=== PATIENT | male | born 1970 | race Caucasian/White ===

== ENCOUNTER 2024-08-20 19:41 | Inpatient (IN) | payer MEDICARE ==
[~2024-08-20] VITALS: Ht 182.9 cm; Wt 108.9 kg
[2024-08-20 21:21] LABS: BASOPHILS ABSOLUTE AUTO 0.07 K/mm3 (0.00-0.23); BASOPHILS PERCENT AUTO 1 % (0-2); EOSINOPHILS ABSOLUTE AUTO 0.14 K/mm3 (0.00-0.68); EOSINOPHILS PERCENT AUTO 1 % (0-6); Hematocrit 41.7 % (37.0-53.0); Hemoglobin 12.9 g/dL (13.5-17.5); IMMATURE GRAN ABSOLUTE AUTO 0.07 K/mm3 (0.00-0.10); IMMATURE GRAN PERCENT AUTO 1 % (0-1); LYMPHOCYTES ABSOLUTE AUTO 1.47 K/mm3 (0.84-5.20); LYMPHOCYTES PERCENT AUTO 10 % (21-46); MONOCYTES ABSOLUTE AUTO 1.02 K/mm3 (0.16-1.47); MONOCYTES PERCENT AUTO 7 % (4-13); Mean Corpuscular HGB 24.2 pg (26.0-34.0); Mean Corpuscular HGB Conc 30.9 g/dL (31.5-36.5); Mean Corpuscular Volume 78 fL (80-100); NEUTROPHILS PERCENT AUTO 81 % (41-73); Platelet Count 235 K/mm3 (150-400); RDW Coefficient Variation 19.2 % (11.7-14.2); Red Blood Cell Count 5.34 M/mm3 (4.30-5.90); White Blood Cell Count 14.87 K/mm3 (4.00-11.30)
[2024-08-20] MEDS ORDERED: NS 1,000 ML IV SCH (21:35)
[2024-08-20 21:39] LABS: Albumin, Blood 2.6 g/dL (3.4-5.0); Albumin/Globulin Ratio 0.5 (0.8-1.8); Bilirubin, Total 0.6 mg/dL (0.1-1.0); Bun/Creatinine Ratio 15.7 (12.0-20.0); Calcium, Blood 9.1 mg/dL (8.5-10.1); Creatinine, Blood 0.7 mg/dL (0.60-1.20); Globulin, Blood 4.9 g/dL (2.2-4.0); Potassium, Blood 5.9 mmol/L (3.5-5.5); Total Protein, Blood 7.5 g/dL (6.4-8.2)
[2024-08-20 21:48] LABS: CORONAVIRUS COVID-19 AG Negative (NEGATIVE); INFLUENZA A AG Negative (NEGATIVE); INFLUENZA B AG Negative (NEGATIVE)
[2024-08-20] MEDS ORDERED: Insulin Regular 100 Unit/ML 1ML Dose IV ONE (21:50)
[2024-08-20] MEDS ORDERED: Calcium Chloride 10% 100 MG/ML 10ML Vial IV SCH (21:50)
[2024-08-20 21:57] LABS: Magnesium, Blood 1.9 mg/dL (1.6-2.4)
[2024-08-20] MEDS ORDERED: CALCIUM GLUC IN NACL, ISO-OSM 50 ML IV ONE (22:00)
[2024-08-20 22:06] LABS: Calcium, Ionized (POC) 1.12 mmol/L (1.10-1.46); Chloride (POC) 99 mmol/L (98-108); Creatinine (POC) 0.8 mg/dL (0.8-1.3); Glucose (ISTAT POC) 558 mg/dL (70-99); Hemoglobin (POC) 14.6 g/dL (13.5-17.5); Potassium (POC) 5.9 mmol/L (3.5-5.5); Sodium (POC) 129 mmol/L (135-148); Total CO2 (POC) 24 mmol/L (21-32)
[2024-08-20 23:14] LABS: Source, Urine Clean Catch
[2024-08-20 23:30] LABS: Appearance, Urine Hazy (Clear); Bilirubin, Urine Neg (Neg); Blood, Urine 1+ (Neg); Color, Urine Yellow (P-Yellow); Glucose Qualitative, Urine 4+ (Neg); Ketones, Urine Neg (Neg); Leukocyte Esterase, Urine 1+ (Neg); Nitrite, Urine Pos (Neg); Protein, Urine 2+ (Neg); Specific Gravity, Urine 1.015 (1.003-1.022); Urobilinogen, Urine NORM (Normal)
[2024-08-20 23:45] LABS: Bacteria Mod /hpf; Red Blood Cells, Urine 0-2 /hpf (0-2); Squamous Epithelial Cells Few /hpf (Few); White Blood Cells, Urine TNTC /hpf (0-5)
[2024-08-21 00:03] LABS: Calcium, Ionized (POC) 1.11 mmol/L (1.10-1.46); Chloride (POC) 100 mmol/L (98-108); Creatinine (POC) 0.7 mg/dL (0.8-1.3); Glucose (ISTAT POC) 329 mg/dL (70-99); Hemoglobin (POC) 13.3 g/dL (13.5-17.5); Potassium (POC) 4.8 mmol/L (3.5-5.5); Sodium (POC) 133 mmol/L (135-148); Total CO2 (POC) 24 mmol/L (21-32)
[2024-08-21] MEDS ORDERED: NS 1,000 ML IV ONE (00:15)
[2024-08-21] MEDS ORDERED: Ondansetron HCl 2 MG / ML 2ML Vial IV PRN (00:20)
[2024-08-21] MEDS ORDERED: Acetaminophen 325 MG TABLET PO PRN (00:20)
[2024-08-21] MEDS ORDERED: CefTRIAXone Sodium 2,000 MG in NS 100 ML IV ONE (00:25)
[2024-08-21] MEDS ORDERED: NS 1,000 ML IV SCH (00:25)
[2024-08-21] MEDS ORDERED: Insulin Glargine-Yfgn 100 Unit/mL 3 ML SYR SC SCH (01:00)
[2024-08-21 02:12] VITALS: BP 142/73
[2024-08-21] MEDS ORDERED: Magnesium Hydroxide Conc 10 ML UDC PO PRN (03:35)
[2024-08-21 05:35] LABS: BASOPHILS ABSOLUTE AUTO 0.07 K/mm3 (0.00-0.23); BASOPHILS PERCENT AUTO 1 % (0-2); EOSINOPHILS ABSOLUTE AUTO 0.21 K/mm3 (0.00-0.68); EOSINOPHILS PERCENT AUTO 2 % (0-6); Hematocrit 37.4 % (37.0-53.0); Hemoglobin 11.5 g/dL (13.5-17.5); IMMATURE GRAN ABSOLUTE AUTO 0.07 K/mm3 (0.00-0.10); IMMATURE GRAN PERCENT AUTO 1 % (0-1); LYMPHOCYTES ABSOLUTE AUTO 1.18 K/mm3 (0.84-5.20); LYMPHOCYTES PERCENT AUTO 9 % (21-46); MONOCYTES ABSOLUTE AUTO 1.11 K/mm3 (0.16-1.47); MONOCYTES PERCENT AUTO 8 % (4-13); Mean Corpuscular HGB 24.6 pg (26.0-34.0); Mean Corpuscular HGB Conc 30.7 g/dL (31.5-36.5); Mean Corpuscular Volume 80 fL (80-100); NEUTROPHILS ABSOLUTE AUTO 10.73 K/mm3 (1.96-9.15); NEUTROPHILS PERCENT AUTO 80 % (41-73); Platelet Count 208 K/mm3 (150-400); RDW Coefficient Variation 19.2 % (11.7-14.2); RDW Standard Deviation 54.5 fL (35.1-46.3); Red Blood Cell Count 4.68 M/mm3 (4.30-5.90); White Blood Cell Count 13.37 K/mm3 (4.00-11.30)
[2024-08-21 06:07] LABS: Albumin, Blood 2.2 g/dL (3.4-5.0); Albumin/Globulin Ratio 0.5 (0.8-1.8); Bilirubin, Total 0.5 mg/dL (0.1-1.0); Bun/Creatinine Ratio 17.3 (12.0-20.0); Calcium, Blood 8.6 mg/dL (8.5-10.1); Creatinine, Blood 0.58 mg/dL (0.60-1.20); Globulin, Blood 4.1 g/dL (2.2-4.0); Potassium, Blood 4.9 mmol/L (3.5-5.5); Total Protein, Blood 6.3 g/dL (6.4-8.2)
[2024-08-21] MEDS ORDERED: FentaNYL Citrate 50 MCG/ML 2 ML Injection IV PRN (06:10)
[2024-08-21] MEDS ORDERED: Insulin Human Lispro 100 Units/ML 3ML Syringe SC SCH ×2 (07:30→16:30)
[2024-08-21 08:01] VITALS: BP 147/68
[2024-08-21] MEDS ORDERED: Sennosides 8.6 MG Tab PO SCH (09:00)
[2024-08-21] MEDS ORDERED: Enoxaparin 40 MG/0.4 ML SYR SC SCH (09:00)
[2024-08-21 11:46] VITALS: BP 140/76
[2024-08-21] MEDS ORDERED: Insulin Human Lispro 100 Units/ML 3ML Syringe SC ONE (12:00)
[2024-08-21 15:56] VITALS: BP 122/59
--- NOTE | 2024-08-21 18:27 | NUR ---
SUMMARY- PT CONFUSED AND A/O X2-3, POOR HISTORIAN. TOLERATING FOOD AND FLUIDS. COMPLAINS OF PAIN OCC PENILE WOUND AND CHRONIC BACK PAIN, IF FENT ADMIN ONCE THIS SHIFT WITH RELEIF. PT ON BEDREST FOR NOW HE HAS HX L BKA. INCONT B/B, STATES URGENCY THE REASON. VSS, AFIBRILE. LANDCARE OFFICER CONTACTED FRIEND WHO LIVES LOCALLY TO FIND OUT THE WHOLE STORY OF THIS PT- SHE BROUGHT MED LIST AND SPOKE WITH ТАТЬЯНА Jamison. SHE STATES SHE NEVER MET HIM IN PERSON ONLY ON THE INTERNET 15 YEARS AGO, THEY HAVE BEEN FRIENDS VIA SOCIAL MEDIA. THE PT LIVED OUT OF STATE AND SURPRISED THIS LADY, STATING HE WANTS TO BE CLOSE TO HER NOW. SHE ALSO STATES PT HAS TERMINAL LUNG CANCER DX. WILL PASS ON THE INFO AND REPORT TO NOC MEY
[2024-08-21 19:38] VITALS: BP 120/75
[2024-08-21] MEDS ORDERED: CefTRIAXone Sodium 1,000 MG in NS 100 ML IV SCH (21:00)
[2024-08-21 23:43] VITALS: BP 92/63
--- NOTE | 2024-08-22 00:58 | NUR ---
LAB REPORTS BLOOD CULTURE: GRAM NEGATIVE BACILLI. PATIENT ON IV CEFTRIAXONE 1,[address] PLASENCIA REPORTS COVERAGE IS SUFFICIENT. TM.
[2024-08-22 03:30] VITALS: BP 110/69
--- NOTE | 2024-08-22 04:04 | NUR ---
SHIFT SUMMARY PATIENT HAD NO ACUTE CHANGES. AXO X 2 AND BEDREST WITH LEFT BKA. PIV INTACT. IV ABX INFUSED. CBG 269. TELE MONITOR NSR 98. INCONTINENT. DR MCDANIELS IN TO SEE PATIENT. ORDERS PLACED. DENIES CHEST PAIN, SOB, AND N/V. VSS/AFEBRILE. CALL LIGHT IN REACH. BED IN LOWEST POSITION. WILL CONTINUE TO MONITOR UNTIL DAY SHIFT NURSE ASSUMES CARE.
--- NOTE | 2024-08-22 04:06 | NUR ---
RUBBER EXTRUSION MACHINE OPERATOR REPORTS IDIOVENTRICULAR RHYTHM FOR 30 SECONDS AND BACK TO NSR 98. PATIENT ASYMPTOMATIC RESTING IN BED. TM.
[2024-08-22 05:56] LABS: BASOPHILS ABSOLUTE AUTO 0.06 K/mm3 (0.00-0.23); BASOPHILS PERCENT AUTO 1 % (0-2); EOSINOPHILS ABSOLUTE AUTO 0.19 K/mm3 (0.00-0.68); EOSINOPHILS PERCENT AUTO 2 % (0-6); Hematocrit 39.4 % (37.0-53.0); IMMATURE GRAN ABSOLUTE AUTO 0.07 K/mm3 (0.00-0.10); IMMATURE GRAN PERCENT AUTO 1 % (0-1); LYMPHOCYTES ABSOLUTE AUTO 1.19 K/mm3 (0.84-5.20); LYMPHOCYTES PERCENT AUTO 10 % (21-46); MONOCYTES ABSOLUTE AUTO 0.95 K/mm3 (0.16-1.47); MONOCYTES PERCENT AUTO 8 % (4-13); Mean Corpuscular HGB Conc 30.5 g/dL (31.5-36.5); Mean Corpuscular Volume 79 fL (80-100); NEUTROPHILS ABSOLUTE AUTO 9.06 K/mm3 (1.96-9.15); NEUTROPHILS PERCENT AUTO 79 % (41-73); Platelet Count 209 K/mm3 (150-400); RDW Coefficient Variation 19.2 % (11.7-14.2); RDW Standard Deviation 54.4 fL (35.1-46.3); White Blood Cell Count 11.52 K/mm3 (4.00-11.30)
[2024-08-22 06:26] LABS: Albumin, Blood 2.3 g/dL (3.4-5.0); Anion Gap 12 mmol/L (3-11); Blood Urea Nitrogen 12 mg/dL (8-24); Bun/Creatinine Ratio 19.1 (12.0-20.0); CO2, Blood 22 mmol/L (21-32); Calcium, Blood 8.4 mg/dL (8.5-10.1); Chloride, Blood 101 mmol/L (98-108); Creatinine, Blood 0.63 mg/dL (0.60-1.20); Glomerular Filtration Rate 113 (60-); Glucose, Blood 301 mg/dL (70-99); Magnesium, Blood 1.9 mg/dL (1.6-2.4); Potassium, Blood 4.4 mmol/L (3.5-5.5); Sodium, Blood 131 mmol/L (136-145); Thyroid Stimulating Hormone 0.667 uIU/mL (0.360-4.800)
[2024-08-22 07:17] VITALS: BP 129/69
[2024-08-22 08:06] LABS: Osmolality, Serum 299 mos/KG (275-300)
--- NOTE | 2024-08-22 08:30 | NUR ---
MD CALL CALL AND SPOKE WITH DR MCDANIELS CONCERNING 24 HOUR URING COLLECTION. INORMED PROVIDER THAT CLIENT IS CURRENTLY INCONTINENT. HERNESTO STATED HE DID NOT WANT TO CATHERIZE PATIENT...JUST COLLECT MUCH POSSIBLE
[2024-08-22] MEDS ORDERED: Tamsulosin HCl 0.4 MG Cap PO SCH (09:00)
[2024-08-22] MEDS ORDERED: Nicotine 21 MG PATCH TOP SCH (10:50)
[2024-08-22] MEDS ORDERED: NS 250 ML IV PRN (12:20)
[2024-08-22 15:17] VITALS: BP 117/71
--- NOTE | 2024-08-22 15:27 | NUR ---
RN NOTE NO RECORDS RECIEVED YET FROM [facility]. MEDICAL RECORDS CALLED AGAIN AND VOICE MESSAGE LEFT.
--- NOTE | 2024-08-22 18:34 | NUR ---
SHIFT SUMMARY A&OX2. SALINE LOCK TO LEFT WRIST REMAIN PATENT. C/O OF PENILE PAIN. GIVEN SUBLIMAZE IV WITH GOOD RESULTS. TELE DC'D. TRANSFERRED TO CHAIR INDEPENTENTLY, WITH NURSE STANDBY. 24 HOUR URINE COLLECTION STARTED. REQUESTED MEDICAL RECORS FROM [facility] IN [place], [place]. HAVE NOT RECIEVED RECORDS AT THIS TIME. BED IN LOW POSITION AND CALL LIGHT IN REACH
[2024-08-22 19:13] VITALS: BP 117/78
[2024-08-23 03:45] VITALS: BP 133/66
--- NOTE | 2024-08-23 05:54 | NUR ---
SHIFT SUMMARY NOC PT A/O X 3. PLEASANT AND COOPERATIVE WITH CARE. VSS. HS CBG 343 AND 4 UNITS LISPRO GIVEN PER SLIDING SCALE. DR MCDANIELS DURING AM ROUNDING CHANGED GLARGINE TO 35 UNITS DAILY. PT PENIS/BACK PAIN MANAGED PER EMAR. WOUND ON MEATUS PERFORMED PER ORDERS. 24 HR URINE COLLECTION ENDS @ 0920 TODAY. IV ABX PER EMAR. PT CURRENTLY RESTING WITH BED IN LOWEST POSITION, AND CALL LIGHT WITHIN REACH.
[2024-08-23 06:12] LABS: BASOPHILS ABSOLUTE AUTO 0.07 K/mm3 (0.00-0.23); BASOPHILS PERCENT AUTO 1 % (0-2); EOSINOPHILS ABSOLUTE AUTO 0.16 K/mm3 (0.00-0.68); EOSINOPHILS PERCENT AUTO 2 % (0-6); Hematocrit 40.2 % (37.0-53.0); Hemoglobin 12.4 g/dL (13.5-17.5); IMMATURE GRAN ABSOLUTE AUTO 0.07 K/mm3 (0.00-0.10); IMMATURE GRAN PERCENT AUTO 1 % (0-1); LYMPHOCYTES ABSOLUTE AUTO 0.75 K/mm3 (0.84-5.20); LYMPHOCYTES PERCENT AUTO 8 % (21-46); MONOCYTES ABSOLUTE AUTO 0.96 K/mm3 (0.16-1.47); MONOCYTES PERCENT AUTO 10 % (4-13); Mean Corpuscular HGB 24.3 pg (26.0-34.0); Mean Corpuscular HGB Conc 30.8 g/dL (31.5-36.5); Mean Corpuscular Volume 79 fL (80-100); NEUTROPHILS PERCENT AUTO 79 % (41-73); Platelet Count 190 K/mm3 (150-400); RDW Coefficient Variation 19.2 % (11.7-14.2); Red Blood Cell Count 5.11 M/mm3 (4.30-5.90); White Blood Cell Count 9.51 K/mm3 (4.00-11.30)
[2024-08-23 06:32] LABS: Albumin, Blood 2.2 g/dL (3.4-5.0); Anion Gap 12 mmol/L (3-11); Blood Urea Nitrogen 12 mg/dL (8-24); Bun/Creatinine Ratio 21.5 (12.0-20.0); CO2, Blood 23 mmol/L (21-32); Calcium, Blood 8.5 mg/dL (8.5-10.1); Chloride, Blood 101 mmol/L (98-108); Creatinine, Blood 0.56 mg/dL (0.60-1.20); Glomerular Filtration Rate 117 (60-); Glucose, Blood 338 mg/dL (70-99); Phosphorus, Blood 3.4 mg/dL (2.5-4.9); Potassium, Blood 4.2 mmol/L (3.5-5.5); Sodium, Blood 132 mmol/L (136-145)
[2024-08-23 07:05] VITALS: BP 137/79
[2024-08-23] MEDS ORDERED: Insulin Glargine-Yfgn 100 Unit/mL 3 ML SYR SC SCH ×4 (09:00→21:00)
[2024-08-23 11:02] LABS: Protein, Urine Quantitative 87.3 mg/dL (0.0-11.9)
[2024-08-23 15:39] VITALS: BP 124/78
--- NOTE | 2024-08-23 19:42 | NUR ---
SHIFT SUMMARY PT A&OX4. PT PLEASANT AND COORERATIVE WITH CARE. VSS. PT ADMITTED DUE TO SEPSIS. PT REPORTS PAIN ON BACK AND MEATUS. PT MEDICATED PER EMAR. 24 HOUR URINE COLLECTED AND SENT TO LAB THIS AM. PT ACHS. BLOOD SUGARS. PT BLOOD SUGARS ELEVATED THIS AM. DOC NOTIFIED. DR. BOWLES ADDED ADDITIONAL GLARGINE DOSE AT BEDTIME. ANTIBIOTIC OINTMENT NOT IN EMAR, PER WOUND CARE ORDERS. CALLED DR. BOWLES, WILBUR STATED "D/C DUE TO PT RECEIVING IV ANTIBIOTICS." PT STATES USES WHEELCHAIR AT BASE. PT INC/CONT. ABLE TO MAKE NEEDS KNOWN, PT IN BED, BED AT LOWEST POSITION, CALL LIGHT IN REACH.
[2024-08-23 20:15] VITALS: BP 132/61
[2024-08-24 05:23] LABS: Hematocrit 38.9 % (37.0-53.0); Hemoglobin 12.2 g/dL (13.5-17.5)
[2024-08-24 05:41] VITALS: BP 145/92
[2024-08-24 05:47] LABS: Albumin, Blood 2.3 g/dL (3.4-5.0); Anion Gap 14 mmol/L (3-11); Blood Urea Nitrogen 12 mg/dL (8-24); Bun/Creatinine Ratio 20.3 (12.0-20.0); CO2, Blood 21 mmol/L (21-32); Calcium, Blood 8.7 mg/dL (8.5-10.1); Chloride, Blood 102 mmol/L (98-108); Creatinine, Blood 0.59 mg/dL (0.60-1.20); Glomerular Filtration Rate 115 (60-); Glucose, Blood 294 mg/dL (70-99); Magnesium, Blood 1.9 mg/dL (1.6-2.4); Phosphorus, Blood 3.2 mg/dL (2.5-4.9); Potassium, Blood 3.9 mmol/L (3.5-5.5); Sodium, Blood 133 mmol/L (136-145)
[2024-08-24 07:35] VITALS: BP 169/103
[2024-08-24] MEDS ORDERED: HYDROcodone 5-APAP 325 TAB PO PRN (08:05)
[2024-08-24] MEDS ORDERED: Ketorolac Tromethamine 15mg Vial IV PRN (08:30)
--- NOTE | 2024-08-24 08:38 | NUR ---
NOTE DR. MCDANIELS CAME TO ROUND ON PT, GAVE VERBAL ORDER TO DO 37 OF LONG ACTING IN MORNING (INSULIN) AND 13 AT NIGHT, STILL SAME TOTAL DAILY DOSE. INSULIN GIVEN.
[2024-08-24] MEDS ORDERED: Insulin Glargine-Yfgn 100 Unit/mL 3 ML SYR SC SCH ×2 (09:00→21:00)
[2024-08-24] MEDS ORDERED: Ciprofloxacin 400MG/D5 200ML 200 ML IV SCH (09:00)
[2024-08-24] MEDS ORDERED: Losartan Potassium 25 MG Tab PO SCH (09:00)
--- NOTE | 2024-08-24 14:19 | NUR ---
NOTE CALLED [facility]. SPOKE WITH STAFF MEMBER, ASKED IF WE COULD HAVE PT'S MEDICAL HISTORY. STAFF MEMBER STATES "KNOWS PT, UNABLE TO PROVIDE INFO, CALL TOMORROW AM, PHONE NUMBER TO CALL IS [phone]. OG WILL NEED TO HAVE MEDICAL RELEASE FORM TO SEND TO RETRIEVE INFO. PT DISCHARGED 4-24-[address] BOWLES NOTIFIED. MRI NOTIFIED. MRI FAX FORM IN CHART. WILL PASS ON TO NIGHT NURSE.
[2024-08-24 16:30] VITALS: BP 125/69
--- NOTE | 2024-08-24 17:24 | NUR ---
NOTE MRI STATED "UNABLE TO TAKE MEDICAL RECORD FROM REHAB F[facility]ILITY, FOR MRI FORM INFORMATION."ASKED PT "WHAT HOSPITAL HE WENT TO FOR NECK PROCEDURE, THAT MAY BE ABLE TO PROVIDE INFORMATION REGARDING ABLE TO HAVE MRI COMPLETED." PT STATED "RECORDS WOULD BE FROM [place], [place]." ATTEMPTED TO CALL [phone] TO CONTACT MEDICAL RECORDS, NO ONE ANSWERED. WILL PASS ON TO NIGHT RN, HOSPITAL RECORDS SHOULD BE ABLE TO BE RETREIVED ON WEEK DAY. NOTIFIED SEE WHEELER.
--- NOTE | 2024-08-24 18:30 | NUR ---
NOTE MRI NOW SAYS, "HISTORY MUST COME FROM PT OR FAMILY." ASKED PT IF ABLE TO PROVIDE INFO, HE STATES "NOT ABLE TO PROVIDE INFO REGARDING PREVIOUS NECK SURG. PT STATED OFFERING A PHONE NUMBER OF A FRIEND BUT SHE DOESN'T KNOW ENOUGH OF MY MEDICAL HISTORY." TOLD CHARGE NURSE AND WILL PASS ALONG TO DRUG ROOM CLERK.
[2024-08-24 19:33] VITALS: BP 130/77
--- NOTE | 2024-08-24 19:39 | NUR ---
SHIFT SUMMARY PT A&OX4. PT ADMITTED DUE TO SEPSIS. PT REPORTS CHRONIC PAIN, PAIN MANAGED PER EMAR. PT GOT IV ANTIBIOTICS. PT ON BEDREST. VSS. PT WORKED WITH PHYSICAL THERAPY TODAY. PT HAS ACHS BLOOD SUGAR CHECKS, MCDANIELS ADJUSTED LONG ACTING INSULIN. BLOOD SUGARS, CONST ELEVATED. PT IN BED, BED IN LOWEST POSITION, CALL LIGHT IN REACH. NO ACUTE CHANGES ON SHIFT.
[2024-08-24] MEDS ORDERED: Insulin Human Lispro 100 Units/ML 3ML Syringe SC ONE (20:40)
[2024-08-25 03:50] VITALS: BP 128/91
[2024-08-25 05:29] LABS: Hematocrit 41.9 % (37.0-53.0)
--- NOTE | 2024-08-25 05:50 | NUR ---
SHIFT SUMMARY PATIENT IS ALERT AND ORIENTED X3. PATIENT HAS HAD NO ACUTE EVENTS THIS SHIFT. VITAL SIGNS REVIEWED. PATIENT HAS COMPLAINED OF PAIN AND MEDICATED PER EMAR. PATIENTS CBG HAS BEEN ELEVATED, PROVIDER NOTIFIED AND OBTAINED ADDITIONAL ORDERS. PATIENT HAS BEEN IND USING URINAL. PATIENT HAS HAD NO COMPLAINTS OF NAUSEA, SOB OR VOMITTING THIS SHIFT. BED IN LOCKED AND LOWEST POSITION. CALL LIGHT IN PLACE.
[2024-08-25 05:53] LABS: Albumin, Blood 2.3 g/dL (3.4-5.0); Anion Gap 14 mmol/L (3-11); Blood Urea Nitrogen 21 mg/dL (8-24); Bun/Creatinine Ratio 27.6 (12.0-20.0); CO2, Blood 20 mmol/L (21-32); Calcium, Blood 8.8 mg/dL (8.5-10.1); Chloride, Blood 101 mmol/L (98-108); Creatinine, Blood 0.76 mg/dL (0.60-1.20); Glomerular Filtration Rate 107 (60-); Glucose, Blood 331 mg/dL (70-99); Magnesium, Blood 1.9 mg/dL (1.6-2.4); Potassium, Blood 4.3 mmol/L (3.5-5.5); Sodium, Blood 131 mmol/L (136-145)
[2024-08-25 07:33] VITALS: BP 142/75
[2024-08-25] MEDS ORDERED: Furosemide 10 MG / ML 2ML Vial IV ONE (15:35)
[2024-08-25 16:07] VITALS: BP 103/63
[2024-08-25] MEDS ORDERED: Insulin Human Lispro 100 Units/ML 3ML Syringe SC SCH (17:30)
--- NOTE | 2024-08-25 17:32 | NUR ---
SHIFT SUMMARY PT IS AAOx4 AND COOPERATIVE WITH CARE. CBGs HAVE BEEN ELEVATED T/O SHIFT. DR. MCDANIELS HAS BEEN NOTIFIED, REFER TO EMAR TO SEE CHANGES MADE TO INSULIN DOSAGES. LASIX HAS BEEN ADDED TO EMAR TO TREAT FLUID RETENTION. PT USES BEDSIDE URINAL TO VOID. USES W/C AT BASELINE. SHAFT/LOWER BACK PAIN MANAGED PER EMAR. PT IS RESTING IN BED WITH BED IN LOWEST POSITION AND CALL LIGHT IN REACH.
--- NOTE | 2024-08-25 17:51 | NUR ---
PLEASE REFER TO STUDENT NOTE SUMMARY THIS MILD DISABILITIES TEACHER HAS REVIEWED AND AGREES.
[2024-08-25 19:35] VITALS: BP 99/51
[2024-08-25] MEDS ORDERED: Insulin Glargine-Yfgn 100 Unit/mL 3 ML SYR SC SCH ×2 (21:00)
[2024-08-26 04:03] VITALS: BP 104/74
--- NOTE | 2024-08-26 04:53 | NUR ---
SHIFT SUMMARY PATIENT IS ALERT AND ORIENTED. PATIENT HAS HAD NO ACUTE EVENTS THIS SHIFT. PATIENT HAS HAD ELEVATED CBG THIS SHIFT. PATIENT HAS BEEN USING URINAL IND. IV ABX INFUSED ORDERED. PATIENT HAS BEEN RESTING ALL SHIFT WITH NO COMPLAINTS OF SOB, NAUSEA, VOMITTING OR PAIN THIS SHIFT. VITAL SIGNS REVIEWED.
[2024-08-26 05:34] LABS: BASOPHILS ABSOLUTE AUTO 0.08 K/mm3 (0.00-0.23); BASOPHILS PERCENT AUTO 1 % (0-2); EOSINOPHILS ABSOLUTE AUTO 0.29 K/mm3 (0.00-0.68); EOSINOPHILS PERCENT AUTO 3 % (0-6); Hematocrit 43.2 % (37.0-53.0); Hemoglobin 13.6 g/dL (13.5-17.5); IMMATURE GRAN ABSOLUTE AUTO 0.13 K/mm3 (0.00-0.10); IMMATURE GRAN PERCENT AUTO 1 % (0-1); LYMPHOCYTES ABSOLUTE AUTO 1.68 K/mm3 (0.84-5.20); LYMPHOCYTES PERCENT AUTO 16 % (21-46); MONOCYTES ABSOLUTE AUTO 0.94 K/mm3 (0.16-1.47); MONOCYTES PERCENT AUTO 9 % (4-13); Mean Corpuscular HGB 24.7 pg (26.0-34.0); Mean Corpuscular HGB Conc 31.5 g/dL (31.5-36.5); Mean Corpuscular Volume 79 fL (80-100); NEUTROPHILS PERCENT AUTO 70 % (41-73); Platelet Count 221 K/mm3 (150-400); RDW Coefficient Variation 19.4 % (11.7-14.2); RDW Standard Deviation 53.8 fL (35.1-46.3); White Blood Cell Count 10.52 K/mm3 (4.00-11.30)
[2024-08-26 05:49] LABS: Albumin, Blood 2.7 g/dL (3.4-5.0); Anion Gap 13 mmol/L (3-11); Blood Urea Nitrogen 27 mg/dL (8-24); Bun/Creatinine Ratio 32.2 (12.0-20.0); CO2, Blood 22 mmol/L (21-32); Calcium, Blood 9.1 mg/dL (8.5-10.1); Chloride, Blood 99 mmol/L (98-108); Creatinine, Blood 0.84 mg/dL (0.60-1.20); Glomerular Filtration Rate 104 (60-); Glucose, Blood 337 mg/dL (70-99); Phosphorus, Blood 3.9 mg/dL (2.5-4.9); Potassium, Blood 4.1 mmol/L (3.5-5.5); Sodium, Blood 130 mmol/L (136-145)
[2024-08-26 07:23] VITALS: BP 135/79
[2024-08-26] MEDS ORDERED: Insulin Glargine-Yfgn 100 Unit/mL 3 ML SYR SC SCH ×2 (09:00→21:00)
[2024-08-26] MEDS ORDERED: BusPIRone HCl 5 MG Tab PO SCH (14:00)
[2024-08-26 15:41] VITALS: BP 102/69
--- NOTE | 2024-08-26 16:07 | NUR ---
SHIFT SUMMARY PT IS AAOx4 AND COOPERATIVE WITH CARE. CBGs CONTINUE TO BE ELEVATED IN THE 300'S T/O SHIFT. REFER TO EMAR TO SEE ADJUSTMENTS MADE TO INSULIN DOSAGES. PT HAS BEEN ABLE TO MAKE NEEDS KNOWN THROUGHOUT SHIFT AND LOWER BACK/SHAFT PAIN HAS BEEN MANAGED PER EMAR. PT IS CURRENTLY SITTING IN W/C WITH CALL LIGHT IN REACH.
[2024-08-26] MEDS ORDERED: Insulin Human Lispro 100 Units/ML 3ML Syringe SC SCH (17:30)
--- NOTE | 2024-08-26 17:52 | NUR ---
PLEASE SEE STUDENT NOTES FOR SHIFT SUMMARY. THIS ACUTE CARE NURSE PRACTITIONER HAS REVIEWED AND AGREES.
[2024-08-26 21:08] VITALS: BP 114/72
[2024-08-27 04:03] VITALS: BP 99/57
--- NOTE | 2024-08-27 06:48 | NUR ---
SHIFT SUMMARY PT IS ALERT AND ORIENTED TIMES 4 , FULL CODE. PT ADMITTED FOR SEPSIS. PT USES WHEELCHAIR FOR MOBILITY, PARTIAL LEFT LOWER LEG AMP BELOW KNEE. PT LOST IV IN RIGHT WRIST AND A NEW IV WAS PLACED IN LEFT FOREARM. PT DID NOT SLEEP DURING THE NIGHT, STAYED UP WATCHING MOVIES ON HIS TABLET. PT PREFERS TO BE IN CHAIR THAN BED.
[2024-08-27 07:07] LABS: Albumin, Blood 2.6 g/dL (3.4-5.0); Anion Gap 12 mmol/L (3-11); Blood Urea Nitrogen 23 mg/dL (8-24); Bun/Creatinine Ratio 29.8 (12.0-20.0); CO2, Blood 20 mmol/L (21-32); Chloride, Blood 98 mmol/L (98-108); Creatinine, Blood 0.77 mg/dL (0.60-1.20); Glomerular Filtration Rate 106 (60-); Glucose, Blood 276 mg/dL (70-99); Magnesium, Blood 1.9 mg/dL (1.6-2.4); Phosphorus, Blood 3.7 mg/dL (2.5-4.9); Potassium, Blood 4.1 mmol/L (3.5-5.5); Sodium, Blood 126 mmol/L (136-145)
[2024-08-27 08:25] VITALS: BP 122/67
[2024-08-27] MEDS ORDERED: Furosemide 10 MG/ML 4ML Vial IV ONE (08:35)
[2024-08-27 16:17] VITALS: BP 121/57
[2024-08-27] MEDS ORDERED: HYDROcodone 5-APAP 325 TAB PO PRN (16:40)
[2024-08-27] MEDS ORDERED: Naproxen 500 MG Tab PO PRN (16:50)
[2024-08-27] MEDS ORDERED: Insulin Human Lispro 100 Units/ML 3ML Syringe SC SCH (17:30)
--- NOTE | 2024-08-27 18:23 | NUR ---
NO ACUTE CHANGES THIS SHIFT. PT REPORTS PAIN IN THE PENIS. SOME DISCHARGED NOTED. SHILPA CARE PROVIDED. PT REPORTS SOME IMPROVEMENT IN PAIN AND SWELLING. TREATED PAIN PER EMAR. ALERT AND ORIENTED X4, CALLS APPROPRIATELY. CBG TREATED PER EMAR.
[2024-08-27 19:58] VITALS: BP 100/70
[2024-08-27] MEDS ORDERED: Lactobacil 2-S.Thermo-Bifido 1 1 Cap PO SCH (21:00)
[2024-08-27] MEDS ORDERED: Insulin Glargine-Yfgn 100 Unit/mL 3 ML SYR SC SCH (21:00)
[2024-08-27] MEDS ORDERED: Ciprofloxacin 500 MG Tab PO SCH (21:00)
[2024-08-28 04:21] VITALS: BP 136/73
[2024-08-28 04:55] LABS: Hematocrit 40.6 % (37.0-53.0); Hemoglobin 12.6 g/dL (13.5-17.5)
--- NOTE | 2024-08-28 05:04 | NUR ---
Shift Summary AOx4. Pleasant and cooperative, verbalizes needs appropriately. Stays up late but slept soundly once in bed. Medicated for pain x 2 per EMAR with good effect. Voiding well, mostly continent. Had BM tonight. In and out of w/c with minimal assist. Voiced frustration with lack of communication between providers and dc naval surface fire support planner(s) with regard to dc dispositon and date. Uneventful night.
[2024-08-28 05:31] LABS: Albumin, Blood 2.6 g/dL (3.4-5.0); Anion Gap 8 mmol/L (3-11); Blood Urea Nitrogen 22 mg/dL (8-24); CO2, Blood 26 mmol/L (21-32); Chloride, Blood 102 mmol/L (98-108); Creatinine, Blood 0.69 mg/dL (0.60-1.20); Glomerular Filtration Rate 110 (60-); Glucose, Blood 264 mg/dL (70-99); Magnesium, Blood 1.9 mg/dL (1.6-2.4); Phosphorus, Blood 3.8 mg/dL (2.5-4.9); Potassium, Blood 3.9 mmol/L (3.5-5.5); Sodium, Blood 132 mmol/L (136-145)
[2024-08-28 07:16] VITALS: BP 178/87
[2024-08-28] MEDS ORDERED: HydrALAZINE HCl 20 MG / ML 1ML Vial IV PRN (07:50)
--- NOTE | 2024-08-28 08:24 | NUR ---
ASSUMPTION OF CARE: ASSUMED CARE OF PATIENT. ASLEEP DURING SHIFT CHANGE REPORT. LYING IN BED. SITTING IN CHAIR. BREATHING EVEN AND UNLABORED. OXYGEN. SHAH. TELE. BED IN LOWEST POSITION. CALL LIGHT WITHIN REACH. NO ACUTE NEEDS.
[2024-08-28] MEDS ORDERED: BUSP5 PO (10:55)
[2024-08-28] MEDS ORDERED: FURO40 PO (10:58)
[2024-08-28] MEDS ORDERED: CIPR500 PO (10:59)
[2024-08-28] MEDS ORDERED: LOSA25 PO (11:00)
[2024-08-28] MEDS ORDERED: NAPR500ERA PO (11:02)
[2024-08-28] MEDS ORDERED: SENN187 PO (11:03)
[2024-08-28] MEDS ORDERED: TAMS.4ER PO (11:07)
[2024-08-28] MEDS ORDERED: BASAGLAR K100 UNIT/1 SC (11:12)
[2024-08-28] MEDS ORDERED: NICO21TP TOP (11:13)
[2024-08-28] MEDS ORDERED: HUMALOG KW100 UNIT/1 SC (11:16)
[2024-08-28] MEDS ORDERED: INSULIN GL100 UNIT/2 SC (11:18)
--- NOTE | 2024-08-28 11:32 | NUR ---
SALES DEVELOPMENT DIRECTOR FOUND SPANISH INTERPRETER SITTING ON BEDSIDE TABLE IN PATIENT'S ROOM AND REMOVED IT, BRINGING IT TO THIS RN. PATIENT BECAME IRATE, SITTING IN HIS WHEELCHAIR AND COMING OUT INTO THE HALLWAY, DEMANDING STAFF RETURN THE SPANISH INTERPRETER TO HIS POSSESSION. THIS RN EXPLAINED IT IS OUR POLICY TO NOT ALLOW LIGHTERS AND HE STATED HE HAS HAD IT WITH HIM FOR THE LAST SEVEN DAYS. I STATED I HAD BEEN IN HIS ROOM THIS MORNING AND DID NOT SEE THE SPANISH INTERPRETER, AND IF I HAD, I WOULD HAVE REMOVED IT. THIS RN EXPLAINED THAT PATIENTS ARE ASKED, UPON ADMIT, IF THEY HAVE IGNITION SOURCES ON THEIR PERSON OR WITHIN THEIR POSSESSION AND OFTEN ANSWER "NO" WHEN THEY DO, IN FACT, HAVE LIGHTERS; SUSPECT THIS WAS THE CASE WITH THIS PATIENT AND HE REMOVED SPANISH INTERPRETER FROM HIS BAG UPON LEARNING HE WOULD BE DISCHARGING AND THIS IS WHEN SALES DEVELOPMENT DIRECTOR SAW IT AND INITIATED REMOVAL OF IGNITION SOURCES. PATIENT CONTINUED TO STARE DOWN THIS RN, SCOFFING AND STATED, "REALLY?" WHEN I TOLD HIM IT WOULD BE RETURNED TO HIM UPON DISCHARGE. I STATED IT WAS LOCKED UP SAFELY AND I ASSURED HIM IT WOULD BE RETURNED TO HIM. PATIENT CONTINUED TO ATTEMPT TO INTIMIDATE THIS RN EVIDENCED BY STARING ME DOWN AND SCOFFING. I INFORMED HIM THERE WOULD BE A PATIENT SATISFACTION SURVEY IN HIS DISCHARGE PACKET AND HE WAS FREE TO AIR ANY GRIEVANCES HE HAD ABOUT OUR POLICIES AND ENDED DISCUSSION.
--- NOTE | 2024-08-28 14:46 | NUR ---
DISCHARGE SUMMARY: A&Ox3-4. POOR JUDGMENT AND DECISION-MAKING. AMBULATES VIA WC. URGE URINARY INCONTINENCE; CONTINENT OF BOWEL; LBM 08/28/24. MEDS WHOLE c FLUIDS. PULLED OUT OWN IV AFTER FINDIN OUT HE WOULD BE DCing. MEDICATIONS FAXED TO [facility]. INSTRUCTED TO FOLLOW-UP WITH PCP ONCE RETURNS TO [place]. LEFT FLOOR WITH ALL BELONGINGS AND DISCHARGE PACKET ESCORTED BY [facility]. TRANSPORTATION PROVIDED BY [employer]. DIRECTOR OF DISTRIBUTION DOCUMENTATION REVIEW: THIS RN HAS PERSONALLY REVIEWED DOCUMENTATION BY STUDENT NURSE. ALL CONTROLLED SUBSTANCES GIVEN BY AND APPROPRIATE IV PUSHES DIRECTLY OBSERVED BY THIS RN.
[2024-08-29] MEDS ORDERED: Furosemide 40 MG Tab PO SCH (09:00)
== END 2024-08-28 12:50 | disposition home health service (06) | DRG 872 ==
LOC: ER 19:41 → MEDS 19:42
PROVIDERS: Family Medicine; Internal Medicine Nephrology; Student in an Organized Health Care Education/Training Program; ADMIT Internal Medicine
DX: A41.59 Other Gram-negative sepsis (principal); E87.1 Hypo-osmolality and hyponatremia; N17.9 Acute kidney failure, unspecified; N41.2 Abscess of prostate; F32.A Depression, unspecified; N40.1 Benign prostatic hyperplasia with lower urinary tract symptoms; N39.498 Other specified urinary incontinence; M48.061 Spinal stenosis, lumbar region without neurogenic claudication; E87.5 Hyperkalemia; E11.65 Type 2 diabetes mellitus with hyperglycemia; N20.0 Calculus of kidney; K59.00 Constipation, unspecified; M51.26 Other intervertebral disc displacement, lumbar region; R35.0 Frequency of micturition; E11.22 Type 2 diabetes mellitus with diabetic chronic kidney disease; N18.9 Chronic kidney disease, unspecified; I12.9 Hypertensive chronic kidney disease with stage 1 through stage 4 chronic kidney disease, or unspecified chronic kidney disease; D63.1 Anemia in chronic kidney disease; E87.70 Fluid overload, unspecified; E88.09 Other disorders of plasma-protein metabolism, not elsewhere classified; A41.51 Sepsis due to Escherichia coli [E. coli]; S31.20XA Unspecified open wound of penis, initial encounter; B96.1 Klebsiella pneumoniae [K. pneumoniae] as the cause of diseases classified elsewhere; N41.9 Inflammatory disease of prostate, unspecified; N30.81 Other cystitis with hematuria; I87.2 Venous insufficiency (chronic) (peripheral); Z79.4 Long term (current) use of insulin; Z89.512 Acquired absence of left leg below knee; Z79.899 Other long term (current) drug therapy; Z99.3 Dependence on wheelchair
CPT/HCPCS: 36415; 51798; 74177; 80047; 80053; 80069; 81001; 82533; 82947; 83036; 83605; 83690; 83735; 83880; 83930; 84156; 84443; 84550; 85014; 85018; 85025; 87040; 87077; 87086; 87186; 87428-QW; 93005; 93010; 96361; 96374-59; 96375; 97110; 97112; 97129; 97161; 97165; 97530; 99285-25; A9270; G0378; J0612; J0696; J0744; J1650; J1815; J1885; J1938; J3010; J7030; J7050; Q9967

== ENCOUNTER 2024-09-23 19:54 | Emergency (ER) | payer MEDICARE ==
[~2024-09-23] VITALS: Ht 180.3 cm; Wt 108.9 kg
[~2024-09-23 19:54] MED LIST: BASAGLAR K100 UNIT/1 SC; BUSP5 PO; CIPR500 PO; FURO40 PO; HUMALOG KW100 UNIT/1 SC; INSULIN GL100 UNIT/2 SC; LOSA25 PO; NAPR500ERA PO; NICO21TP TOP; SENN187 PO; TAMS.4ER PO
[2024-09-23 20:27] LABS: BASOPHILS ABSOLUTE AUTO 0.08 K/mm3 (0.00-0.23); BASOPHILS PERCENT AUTO 1 % (0-2); EOSINOPHILS ABSOLUTE AUTO 0.16 K/mm3 (0.00-0.68); EOSINOPHILS PERCENT AUTO 1 % (0-6); Hemoglobin 10.6 g/dL (13.5-17.5); IMMATURE GRAN ABSOLUTE AUTO 0.05 K/mm3 (0.00-0.10); IMMATURE GRAN PERCENT AUTO 0 % (0-1); LYMPHOCYTES PERCENT AUTO 10 % (21-46); MONOCYTES ABSOLUTE AUTO 0.99 K/mm3 (0.16-1.47); MONOCYTES PERCENT AUTO 7 % (4-13); Mean Corpuscular HGB 25.7 pg (26.0-34.0); Mean Corpuscular HGB Conc 31.2 g/dL (31.5-36.5); Mean Corpuscular Volume 82 fL (80-100); NEUTROPHILS ABSOLUTE AUTO 10.74 K/mm3 (1.96-9.15); NEUTROPHILS PERCENT AUTO 80 % (41-73); Platelet Count 216 K/mm3 (150-400); RDW Coefficient Variation 20.7 % (11.7-14.2); RDW Standard Deviation 62.4 fL (35.1-46.3); Red Blood Cell Count 4.13 M/mm3 (4.30-5.90); White Blood Cell Count 13.42 K/mm3 (4.00-11.30)
[2024-09-23 20:43] LABS: Albumin, Blood 2.8 g/dL (3.4-5.0); Albumin/Globulin Ratio 0.6 (0.8-1.8); Bilirubin, Total 0.7 mg/dL (0.1-1.0); Bun/Creatinine Ratio 32.6 (12.0-20.0); Calcium, Blood 8.4 mg/dL (8.5-10.1); Creatinine, Blood 0.77 mg/dL (0.60-1.20); Globulin, Blood 4.4 g/dL (2.2-4.0); Potassium, Blood 4.1 mmol/L (3.5-5.5); Total Protein, Blood 7.2 g/dL (6.4-8.2)
[2024-09-24] MEDS ORDERED: AMOCLA875 PO (00:18)
[2024-09-24] MEDS ORDERED: HUMALOG KW100 UNIT/1 SC (00:18)
[2024-09-24] MEDS ORDERED: BASAGLAR K100 UNIT/1 SC (00:18)
[2024-09-24] MEDS ORDERED: AZIT250 PO (00:18)
== END 2024-09-24 01:14 | disposition home or self-care (01) ==
LOC: ER 19:54
PROVIDERS: Student in an Organized Health Care Education/Training Program
DX: J18.9 Pneumonia, unspecified organism (principal); Z79.4 Long term (current) use of insulin; Z79.899 Other long term (current) drug therapy; Z79.2 Long term (current) use of antibiotics
CPT/HCPCS: 71046; 80053; 83690; 83880; 84484; 85025; 93005; 93010; 99285-25